=== PATIENT | female | born 1950 | race Caucasian/White ===

== ENCOUNTER 2022-09-11 13:39 | Emergency (ER) | payer MEDICARE, BC ==
[2022-09-11] MEDS ORDERED: Heparin Sodium/D5W 25,000 UNITS/500 ML BAG IV SCH (13:45)
[2022-09-11] MEDS ORDERED: Norepinephrine 8 MG in Dextrose 5% in Water 250 ML IV SCH ×2 (13:45)
[2022-09-11] MEDS ORDERED: Norepinephrine Bit/D5W Premix 250 ML ONE (13:46)
[2022-09-11] MEDS ORDERED: HYDROmorphone 1 MG/ML Syringe ONE (13:50)
[2022-09-11 13:52] LABS: BASE EXCESS VENOUS -3.6 mm/L; BICARBONATE,VENOUS 21.4 mmol/L; CARBOXYHEMOGLOBIN 1.3 % (0.0-1.6); HEMATOCRIT 33.6 % (34.3-46.0); HEMOGLOBIN 11.4 g/dL (11.2-15.5); MEAN CORPUSCULAR HEMOGLOBIN 31.1 pg (31.6-35.5); MEAN CORPUSCULAR HGB CONC 33.9 g/dL (31.6-35.5); MEAN CORPUSCULAR VOLUME 91.6 fL (81.4-99.0); METHEMOGLOBIN 1.2 %; O2 SATURATION VENOUS 20.7; OXYHEMOGLOBIN 20.2 %; PCO2 VENOUS 40.8 mm/Hg; PH,VENOUS 7.339 (7.350-7.450); PO2 VENOUS 19.7 mm/Hg; RED BLOOD CELL COUNT 3.67 M/uL (3.77-5.24); TOTAL HEMOGLOBIN 11.6 g/dL (12.0-16.0); WHITE BLOOD CELL COUNT,WBC 9.6 K/uL (3.2-11.0)
[2022-09-11] MEDS ORDERED: Etomidate 2 MG/ML 10 ML SDV IVPUSH ONE (13:55)
[2022-09-11] MEDS ORDERED: Norepinephrine Bit/D5W Premix 4 MG in Premix Bag 1 BAG IV SCH (13:56)
[2022-09-11] MEDS ORDERED: Succinylcholine 200 MG/10 ML MDV IV ONE (13:56)
[2022-09-11 14:03] LABS: INR 1.3; PROTHROMBIN TIME 13.4 sec (9.2-10.6)
[2022-09-11] MEDS ORDERED: propofoL 100 ML IV SCH (14:05)
[2022-09-11 14:15] LABS: A/G RATIO 1.3 (1.2-2.2); ALANINE AMINOTRANSFERASE,ALT 34 U/L (12-78); ALBUMIN 2.9 g/dL (3.4-5.0); ALKALINE PHOSPHATASE 56 U/L (46-116); ASPARTATE AMNIOTRANSFERASE,AST 25 U/L (15-37); BILIRUBIN TOTAL 0.4 mg/dL (0.2-1.0); BLOOD UREA NITROGEN,BUN 20 mg/dL (7-18); CALCIUM 7.8 mg/dL (8.5-10.1); CARBON DIOXIDE,CO2 24 mmol/L (21-32); CHLORIDE,CL 108 mmol/L (100-108); CREATININE 1.1 mg/dL (0.6-1.0); EST CRCL DRUG DOSING (CG) 35.95 mL/min; ESTIMATED GFR 53 mL/min (>60); GLUCOSE RANDOM 112 mg/dL (74-106); POTASSIUM,K 3.5 mmol/L (3.6-5.2); PRO B-TYPE NATRIUR PEPT,BNPPRO 145 pg/mL (5-125); PROTEIN TOTAL,TP 5.1 g/dL (6.4-8.2); SODIUM,NA 143 mmol/L (140-148)
[2022-09-11] MEDS ORDERED: Heparin Sodium 5,000 Units/ML Vial IVPUSH ONE (14:15)
[2022-09-11 14:16] LABS: ANION GAP 14.5 mmol/L (5.0-14.0)
[2022-09-11] MEDS ORDERED: EPINEPHrine 1:10,000 1 MG/10 ML Syringe IV ONE (15:07)
== END 2022-09-11 23:58 | disposition expired ==
LOC: JP.ED 13:39
DX: I21.3 ST elevation (STEMI) myocardial infarction of unspecified site (principal); Z79.82 Long term (current) use of aspirin; Z79.899 Other long term (current) drug therapy
CPT/HCPCS: 31500; 36415; 71045; 80053; 82803; 83605; 83880; 84484; 85027; 85379; 85610; 93005; 96365; 96368; 96375; 99285; J0171; J0330; J1644; J2704; J3490; 93010